=== PATIENT | male | born 1985 | race Caucasian/White ===

== ENCOUNTER 2017-04-18 23:32 | Inpatient (IN) | payer OTHER ==
--- NOTE | ~2017-04-18 | CR58 ---
[facility] A Service of [facility] & [facility] RADIOLOGY TEXT RESULTS PATIENT: HERNAN HESTER LOCATION: [place] [address] : [birth year] UNIT #: [id number] AGE: [address]: Janell Mcfarlane MD SEX: M ORDER DR: [id number] [facility] [address] [place], [place] [address] [id number] I MR#: [id number] #: [id number] NAME: HERNAN HESTER : 1985 SEX: M STUDY DATE/TIME: 04/19/2017 01:29 UNIT: [facility] ROOM: [facility] STUDY DESCRIPTION: CR Cervical Spine 2 or 3 Views Attending Physician: Janell Mcfarlane M.D. Ordering Physician: Perlita White M.D. Primary Care Physician: Primary Care Physician No MEDICAL IMAGING REPORT This report is preliminary unless electronic signature is present EXAM Cervical spine, 04/19 at 01:29 HISTORY Patient found down after overdose. Neck pain. The patient found down today. FINDINGS Five views of the cervical spine were obtained. Some of the views are limited as the patient would not cooperate with the exam. No fracture or malalignment is seen. Vertebral body heights and disc spaces are normal. Prevertebral soft tissues are normal. IMPRESSION Negative cervical spine. Dictated by... Beau Guzman Jr., M.D. THIS IS AN ELECTRONICALLY VERIFIED REPORT Beau Guzman Jr., M.D. at 04/19/2017 9:53 PM ULICES/kevin TD: 04/19/2017 08:24 JOB #: [id number] MEDICAL IMAGING REPORT Page 1 of 1 COPY
--- NOTE | ~2017-04-18 | CO ---
Unit #: [id number] #: [id number] Patient: CASSIE CAMERON [id number] [facility] [address] [place], [place] [address] [id number] I MR#: [id number] NAME: CASSIE CAMERON ROOM: 569 Age: 31 Sex: M Admission Date: 04/19/2017 : 1985 Attending Physician: Michelle Andre M.D. Consultation Date: 04/25/2017 CONSULTATION REPORT REASON FOR CONSULTATION Substance abuse, delirium, confusion, encephalopathy. HISTORY OF PRESENT ILLNESS Mr. Cassie Cameron/Carlos Shipman is a 31-year-old white male, seen in room seen 569 bed 1 at [facility] on 04/25/2017. The patient dressed in hospital attire, lying comfortably in bed, very difficult to arouse, very sleepy, and drowsy. The patient was unable to give any reliable information, confused. The patient's vital signs; temperature 98.2, pulse 86, respirations 20, blood pressure 194/98, oxygen saturations 94%. The patient unable to give any reliable information. The patient's mother was in the same room, who reported that the patient was found face down. The patient has a history of substance abuse, apparently used opiates and methamphetamine. The patient's urine drug screen report was not available. The patient was admitted on 04/19/2017. The patient diagnosed with delirium, rhabdomyolysis, acute kidney injury, pneumonia, polysubstance abuse. The patient also has a history of hepatitis C. The patient needed IM medication to control agitation, but currently doing better, did not require any seclusion or restraint. No sitter required. Easily redirectable. PAST PSYCHIATRIC HISTORY Remarkable for history of polysubstance abuse. No known history of any depression, anxiety, or any history of any inpatient psychiatric treatment. MEDICAL HISTORY AND MEDICATIONS HISTORY No known history of any chronic medical condition except for hepatitis C and history of polysubstance abuse. The patient was abusing amphetamine, Xanax, opiates. Medication history, the patient is on vancomycin and IV fluids. FAMILY HISTORY AND SOCIAL HISTORY The patient has a good support system from family. The patient never , but has 7 children. 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 No known history of any abuse. REVIEW OF SYSTEMS Complete review of systems is unremarkable except as mentioned above. MENTAL STATUS EXAMINATION The patient's vital signs; temperature 98.2, pulse 86, respirations 20, blood pressure 194/98, oxygen saturation 94%. General appearance, the patient dressed in hospital attire, lying comfortably in bed. [facility] Unit #: [id number] #: [id number] Patient: CASSIE CAMERON difficult to arouse, very drowsy, sleepy. Attention span and concentration, poor. Speech, minimal. Orientation, unable to assess. Mood and affect, flat. Thought process, unable to assess. Thought content, unable to assess. Guarded paranoid, confused. Unable to provide reliable information. Recent and remote memory, poor. Language, unable to assess. Fund of knowledge, poor. Insight and judgment, impaired. DIAGNOSES Psychiatric: Delirium, F05; possible encephalopathy secondary to substance abuse/oxygen deprivation to brain possibly; history of opioid abuse, severe F11.20; history of amphetamine abuse, moderate, F15.20; history of sedative hypnotic use disorder, F13.20. Secondary diagnosis: Deferred. Medical diagnosis: Please refer to H and P. Stressors: Psychosocial stressors. ASSESSMENT AND PLAN 1. Supportive psychotherapy and psychoeducation provided to the patient and family, and educated about benefits and side effects of medication and course and prognosis of illness. At this time, the patient unable to comprehend much. 2. Advised to continue with the treatment as advised. We will continue to monitor. If needed, consider medication to treat the delirium. The patient is prescribed haloperidol 2 mg q.8 hours p.r.n., agree at this time with that. If needed, consider on regular basis. If needed, please feel free to call if any questions, telephone #[phone]. Dictated by... Molly Sena/tirso TD: 04/26/2017 14:31 JOB #: [id number] CONSULTATION REPORT Page 1 of 1 X Miguel Angel Worthington MD X CONSULTATION REPORT
--- NOTE | ~2017-04-18 | FU ---
[facility] Nutrition Therapy DATE: 04/25/17 Patient: CASSIE CAMERON Physician: WASHINGTON Address: [address] Room/Bed: [address] [place] [address], Zip: [place] [address] Admit Date: 04/19/17 Date of : [birth year] Height: 5 3 Weight: 137 62.5 NUTRITION MONITORING/FOLLOW-UP: Reason: PT SEEN FOR FOLLOW-UP DX: ASHIA, RHABDO, PNA, DELIRIUM Anthropometrics: 5'5", WT: 137# (62 KG), BMI: 22.8 -ADMIT WEIGHT: 121# Labs: BUN: 45, CREAT: 2.3, CA+:7.7, ALB: 2.1 (04/22/17), AST: 108, ALT:113, GFR: 37.0 Meds: NACL, ZOFRAN I&O's: 230/1375 Skin: NO KNOWN SKIN ISSUES EDEMA: RUE 2+ EDEMA; BLE 1+ EDEMA; LUE 1+ EDEMA Assessment: CHART REVIEWED AND EVENTS NOTED. PT SEEN FOR FOLLOW-UP. PT WITHDRAWN, DROWSY AND LETHARGIC AT THIS TIME. PT DID NOT WAKE TO VERBAL CUES. FAMILY AT BEDSIDE ALSO SLEEPY/LETHARGIC AT TIME OF VISIT. FAMILY REPORTS PT DID NOT CONSUME BREAKFAST AND LUNCH TODAY BECAUSE PT WAS TOO SLEEPY. FAMILY REPORTED NO DIET QUESTIONS. PT NOT APPROPRIATE FOR DIET EDUCATION AT THIS TIME. RD TO FOLLOW. Dx: INADEQUATE PROTEIN-ENERGY INTAKE R/T CURRENT DIAGNOSIS & CONDITION AEB NPO STATUS. -ACTIVE/RESOLVED. NEW DX: INADEQUATE PROTEIN-ENERGY INTAKE R/T CURRENT CONDITION AEB PT SLEEPY/LETHARGIC. Intervention: 1. REGULAR DIET + THINS Monitoring, Evaluation and Goals: 1. PO INTAKE; CONSUME/TOLERATE >50% OF MEALS W/NO C/O N/V/D-NOT MET/IN PROGRESS 2. LABS; WNL-IN PROGRESS 3. GI; PROMOTE REGULAR GI FUNCTION-IN PROGRESS 5. ENTERAL NUTRITION; PROVIDE >80% ESTIMATED NUTRIENT NEEDS-UNMEASURED NEW GOALS: 1. WEIGHTS; PROMOTE WEIGHT MAINTENANCE MONITOR: -PO INTAKE/APPETITE -WEIGHTS [facility] Nutrition Therapy DATE: 04/25/17 Patient: CASSIE CAMERON Physician: WASHINGTON Address: [address] Room/Bed: [facility] [facility], Zip: [place] [address] Admit Date: 04/19/17 Date of : [birth year] Height: 5 3 Weight: 137 62.5 Recommendations: 1. PLEASE OBTAIN PHOS LEVEL 2. CONTINUE CURRENT DIET ORDER ABOVE 3. CONSIDER ADDING SUPPLEMENTS, SUCH ENSURE ENLIVE, PUDDING, MAGIC CUP OR ENSURE CLEAR BID, FOR ADDITIONAL PROTEIN AND KCAL 4. APPRECIATE FAMILY AND STAFF TO ENCOURAGE PO INTAKE, ASSIST W/ORDERING MEALS NEEDED RD WILL F/U PER PROTOCOL PT IS MILDLY COMPROMISED Respectfully, FELY SYED MS, RD, LD [employer] [facility] [employer] cc: client file
--- NOTE | ~2017-04-18 | MR18 ---
[facility] A Service of [facility] & [facility] RADIOLOGY TEXT RESULTS PATIENT: CASSIE CAMERON LOCATION: [facility] 569-01 : [birth year] UNIT #: [id number] AGE: [address]: Michelle Andre MD SEX: M ORDER DR: [id number] [facility] [address] [place], [place] [address] [id number] I MR#: [id number] Acc #: [id number] NAME: CASSIE CAMERON : 1985 SEX: M STUDY DATE/TIME: 04/26/2017 21:53 UNIT: [facility] ROOM: [facility] STUDY DESCRIPTION: MR Brain Wo Contrast Attending Physician: Michelle Andre M.D. Ordering Physician: Sandra Cantu M.D. Primary Care Physician: Primary Care Physician No MRI CENTER REPORT This report is preliminary unless electronic signature is present. EXAM MRI of the brain without contrast, 04/26/2017 COMPARISON None. HISTORY Drug overdose. Patient unable to talk since April 16 or . FINDINGS Multisequence, multiplanar imaging of the brain was obtained without contrast. There are hyperintense T2 signal lesions noted in the bilateral lentiform nuclei, particularly on the right, right occipital cortex and underlying subcortical white matter, periventricular white matter. These have increased DWI signal also. Increased DWI signal is also noted in the splenium of the corpus callosum. Minimal associated and decreased ADC signal is associated with some of these lesions. No hydrocephalus. There is slightly smaller size of the right lateral ventricle when compared to the left. S-shaped nasal septal deviation is noted. Images orbits with the ocular structures are unremarkable. Paranasal sinus mucosal thickening is noted, severe in the right maxillary antrum. Motion artifact limits evaluation. IMPRESSION 1. Scattered increased T2 signal with some increased DWI signal and suspicious mild decreased ADC signal are noted in the brain. The are in bilateral lentiform nuclei particularly involving the globus pallidi, right occipital lobe in the region of the cortex and subcortical white matter of the occipital pole, splenule of the corpus callosum, periventricular white matter. The patient has a history of IV drug abuse. Differential consideration include toxic and metabolic encephalopathy including carbon monoxide poisoning. Post contrast imaging would be helpful. Scattered thromboembolic STS. [facility] A Service of [facility] & [facility] RADIOLOGY TEXT RESULTS PATIENT: CASSIE CAMERON LOCATION: [facility] 569-01 : [birth year] UNIT #: [id number] AGE: [address]: Michelle Andre MD SEX: M ORDER DR: phenomenon, sporadic Creutz feldt Jayden disease and Infectious process like encephalitis are next in the differential consideration. there is no evidence of well defined drainable abscess. 2. Paranasal sinus mucosal thickening, particularly in the right maxillary antrum. STAT * RESULT Dictated by... Crystal Trivedi M.D. THIS IS AN ELECTRONICALLY VERIFIED REPORT Crystal Trivedi M.D. at 04/28/2017 11:59 AM CPR/cody TD: 04/26/2017 22:48 JOB #: [id number] MRI CENTER REPORT Page 1 of 1 COPY
--- NOTE | ~2017-04-18 | OR ---
Unit #: [id number] #: [id number] Patient: HERNAN HESTER [id number] [address] [address] [id number] I MR#: [id number] NAME: HERNAN HESTER ROOM: [facility] Date of Procedure: 04/19/2017 Admission Date: 04/19/2017 Surgeon: Adam Urbina M.D. : 1985 Attending Physician: Janell Mcfarlane M.D. Primary Care Physician: Kayleen Primary Care Physician PROCEDURE OPERATIVE NOTE INDICATION FOR PROCEDURE Altered mental status. PROCEDURE PERFORMED Diagnostic lumbar puncture. ANESTHESIA Versed 6 mg IV. COMPLICATIONS None. PROCEDURE An informed consent was obtained from the family after explaining the risks and benefits of this procedure. The patient was prepped and positioned appropriately. Then he was cleansed with chlorhexidine. Then a needle was inserted in the vertebral space between the L4 and L5 vertebra until clear fluid was obtained, about 10 cc was put in sterile tubes, which will be sent for testing. Then the needle was removed and a dressing was applied to the procedure site. The patient will be flat for the next four hours post procedure. The patient tolerated the procedure well, with no immediate complications. Dictated by... Adam Urbina M.D. EA/marco TD: 04/20/2017 07:09 JOB #: [id number] PROCEDURE OPERATIVE NOTE Page 1 of 1 X ADAM ROSA MD X PROCEDURE OPERATIVE NOTE
--- NOTE | ~2017-04-18 | XA198 ---
[facility] A Service of [facility] & [facility] RADIOLOGY TEXT RESULTS PATIENT: CASSIE CAMERON LOCATION: [facility] 569-01 : [birth year] UNIT #: [id number] AGE: [address]: Michelle Andre MD SEX: M ORDER DR: [id number] [place] [address] [facility] [place], [place] [address] [id number] I MR#: [id number] Acc #: [id number] NAME: CASSIE CAMERON : 1985 SEX: M STUDY DATE/TIME: 04/21/2017 14:15 UNIT: [facility] ROOM: [facility] STUDY DESCRIPTION: XA Spinal Puncture Attending Physician: Michelle Andre M.D. Ordering Physician: Pedro Mckeon M.D. Primary Care Physician: Primary Care Physician No MEDICAL IMAGING REPORT This report is preliminary unless electronic signature is present EXAM Fluoroscopically guided lumbar puncture INDICATION Unresponsiveness since April 18, 2017. Patient does have a history of hepatitis C. PROCEDURE The risks, benefits, and alternatives to the procedure were explained to the patient's power of admitted attorneys, and signed, informed consent was obtained. He was placed prone on the angiographic table and was prepped and draped in the usual sterile fashion. Skin and subcutaneous tissues were anesthetized with buffered lidocaine and a 20-gauge spinal needle was advanced into the spinal canal under fluoroscopic guidance. Inner stylet was removed and this yielded slow but spontaneous drainage of mildly cloudy CSF. I attached tubing to the needle which had only very slow drainage through the tubing. Ultimately, I attached a syringe to the needle and removed a total of about 6 mL of again somewhat cloudy CSF and divided it up amongst the 4 tubes. Needle was then removed and manual pressure was applied until hemostasis was obtained. Patient tolerated the procedure well and there were no immediate complications. Total fluoroscopy time was 0.7 minutes. AK was 16 mGy. IMPRESSION Technically successful fluoroscopically guided lumbar puncture as noted above. Fluoroscopy was used during the procedure and permanent images were saved. Please note CSF did appear slightly cloudy and was sent to the lab as requested by the primary team. Dictated by... Dee Blake M.D. [facility] A Service of [facility] & [facility] RADIOLOGY TEXT RESULTS PATIENT: CASSIE CAMERON LOCATION: [facility] 569-01 : [birth year] UNIT #: [id number] AGE: [address]: Michelle Andre MD SEX: M ORDER DR: THIS IS AN ELECTRONICALLY VERIFIED REPORT Dee Blake M.D. at 04/24/2017 3:53 PM AFF/carlos TD: 04/24/2017 09:48 JOB #: [id number] MEDICAL IMAGING REPORT Page 1 of 1 COPY
--- NOTE | ~2017-04-18 | XA166 ---
[facility] A Service of [facility] & [facility] RADIOLOGY TEXT RESULTS PATIENT: CASSIE CAMERON LOCATION: [facility] 569-01 : [birth year] UNIT #: [id number] AGE: [address]: Michelle Andre MD SEX: M ORDER DR: [id number] [facility] [address] [place], [place] [address] [id number] I MR#: [id number] Acc #: [id number] NAME: CASSIE CAMERON : 1985 SEX: M STUDY DATE/TIME: 04/25/2017 15:01 UNIT: [facility] ROOM: [facility] STUDY DESCRIPTION: XA PICC Line Placement WO Port Attending Physician: Michelle Andre M.D. Ordering Physician: Michelle Andre M.D. Primary Care Physician: Primary Care Physician No MEDICAL IMAGING REPORT This report is preliminary unless electronic signature is present EXAM Right-sided PICC line placement HISTORY No IV access. Drug addition. PRE-PROCEDURE The procedure was explained to the patient and/or patient sales representative canvas products including risks, benefits, potential complications and potential for alternative forms of treatment. Informed consent was obtained, and prior to initiating the procedure a formal timeout procedure was performed. PROCEDURE Using full standard sterile barrier technique, including caps, gowns, gloves, masks, as well as sterile skin preparation and standard sterile draping, the right arm was prepped and draped in the usual fashion, and real-time sterile ultrasound guidance was used to localize an arm vein and to confirm vessel patency. A hard copy ultrasound image was recorded. After local anesthesia with 1% Xylocaine, the basilic vein was punctured using real-time sterile ultrasound guidance, and an 0.018 guidewire was advanced into the superior vena cava, using fluoroscopic guidance. A 5-Sinhala dual-lumen PICC was then measured to 38 cm and deployed with the tip positioned in the superior vena cava. The position of the line was documented with a single spot radiographic image. The line was secured in place with an adhesive dressing and an antibiotic patch was applied. Total fluoro time was 0.8 minutes. Exposure 6 mGy air kerma standard. IMPRESSION Successful placement of a 5-Sinhala dual-lumen PowerPICC via the arm under ultrasound and fluoroscopic guidance. The tip of the PICC is in good position in the superior vena cava. [facility] A Service of [facility] RADIOLOGY TEXT RESULTS PATIENT: CASSIE CAMERON LOCATION: [facility] 569-01 : [birth year] UNIT #: [id number] AGE: [address]: Michelle Andre MD SEX: M ORDER DR: Dictated by... Cassie Garcia M.D. THIS IS AN ELECTRONICALLY VERIFIED REPORT Cassie Garcia M.D. at 04/27/2017 7:24 AM ANAY/cody TD: 04/25/2017 23:14 JOB #: [id number] MEDICAL IMAGING REPORT Page 1 of 1 COPY
--- NOTE | ~2017-04-18 | CO ---
Unit #: [id number] #: [id number] Patient: HERNAN HESTER [id number] [address] [place], [place] [address] [id number] I MR#: [id number] NAME: HERNAN HESTER ROOM: [facility] Age: 31 Sex: M Admission Date: 04/19/2017 : 1985 Attending Physician: Trina Christie M.D. Primary Care Physician: No Primary Care Physician Consultation Date: 04/19/2017 CONSULTATION REPORT REASON FOR CONSULT ICU management. HISTORY OF PRESENT ILLNESS This is a 31-year-old male with past medical history significant for IV drug abuse who presented to the emergency room with altered mental status and drug overdose. The family is not at bedside at this point and reachable by phone, but per the nursing report, his girlfriend stated that he has been doing hard drugs for the last 2 years, and for the last 4 or 5 days he was wide awake with no sleep. Finally, after doing a lot of methamphetamine, he became more lethargic and less responsive. The patient's girlfriend finally decided to bring him to the emergency room. She also noted that he was coughing and probably had fever, but she did not check it. There was no reported nausea, vomiting or diarrhea. PAST MEDICAL HISTORY IV drug abuse. PAST SURGICAL HISTORY None. SOCIAL HISTORY The patient is well known by his family to do IV drugs; unsure about drinking or smoking. ALLERGIES No known drug allergies. FAMILY HISTORY Noncontributory. REVIEW OF SYSTEMS Unable to obtain due to the patient's condition. PHYSICAL EXAMINATION GENERAL: The patient is lethargic but very restless. VITAL SIGNS: Blood pressure 110/62, respiratory rate 24, heart rate between 105 and 124, O2 saturation 98% on room air. HEENT: Atraumatic, normocephalic. PERRLA, EOMI. NECK: Supple. No JVD. No lymphadenopathy. CHEST: Bilateral fine rhonchi. HEART: S1, S2. Positive systolic murmur. Unit #: [id number] #: [id number] Patient: HERNAN HESTER ABDOMEN: Soft, nontender. Bowel sounds positive. No hepatosplenomegaly. EXTREMITIES: No edema or cyanosis. SKIN: No rashes. 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 He is not answering questions except for saying, "Yes" and "What?" He is moving all extremities. LABS AND OTHER TESTS LABS: Creatinine of 4.5, sodium 126, chloride 93, AST 10,040. CK 50,000. IMAGING TESTS: Chest x-ray is concerning for septic emboli. ASSESSMENT 1. Severe sepsis. 2. Likely endocarditis. 3. Severe rhabdomyolysis. 4. Acute kidney injury. 5. Transaminitis, likely representing hepatitis. 6. Hyponatremia. 7. IV drug abuse. 8. Hyperkalemia. PLAN 1. The patient is critical and expected to deteriorate over the next 1-2 days, so we will continue to watch in the ICU very closely. 2. Generous IV hydration, including bicarb. 3. The patient may likely need hemodialysis at some point. We will defer to renal to assess. 4. Broad-spectrum antibiotics pending culture. 5. The patient will need echo and LEO at some point. 6. He will also need MRI of his head when he is more cooperative. 7. Hepatitis and HIV panels. 8. Will hold on DVT prophylaxis until more definitive imaging of his head is available. NOTE: Critical care time spent on this patient was 32 minutes. Dictated by... Molly Marina TD: 04/19/2017 07:59 JOB #: [id number] CONSULTATION REPORT Page 1 of 1 X ADAM ROSA MD X CONSULTATION REPORT
--- NOTE | ~2017-04-18 | CO ---
Unit #: [id number] #: [id number] Patient: HERNAN HESTER [id number] [address] [place], [place] [address] [id number] I MR#: [id number] NAME: HERNAN HESTER ROOM: CIC2 Age: 31 Sex: M Admission Date: 04/19/2017 : 1985 Attending Physician: Janell Mcfarlane M.D. Primary Care Physician: No Primary Care Physician Consultation Date: 04/19/2017 CONSULTATION REPORT REASON FOR CONSULTATION Antibiotic management and suspected possible endocarditis/sepsis. HISTORY OF PRESENT ILLNESS This is a 31-year-old male who is agitated and has altered mental status and unable to provide any history. There is no history and physical at this time uploaded in the computer system and chart has been reviewed. The patient appears to have been brought to the emergency room by his family as he was unable to, per the ER records, "sleep it off" which is what he normally does after he does drugs. The patient has a history of methamphetamine and heroin abuse. The patient was admitted to the hospital after he was found to have some acute kidney injury, rhabdomyolysis and altered mental status. The patient is currently in the ICU. He is not on any pressors but he remains agitated and restless. He is difficult to get any information from. The patient was started on antibiotic therapy and ID was asked to evaluate for further management. PAST MEDICAL HISTORY Unknown except for hepatitis C in the ER records with IV drug abuse. PAST SURGICAL HISTORY Unknown. ALLERGIES No known allergies. MEDICATIONS Vancomycin and Zosyn. He also got tobramycin x1 in the ER. For other medications, please refer to patient's MAR. SOCIAL HISTORY Known polysubstance abuse with methamphetamines and heroin as well as Xanax per the ER records. REVIEW OF SYSTEMS Unable to obtain secondary to patient's mental status. PHYSICAL EXAMINATION VITAL SIGNS: Temperature is 98.9 with a T-max of 101.8. Pulse is 121, blood pressure is 133/78, respiratory rate is 32. GENERAL: This is a no apparent distress male who is restless, had altered mental status. HEENT/NECK: Pupils are difficult to examine as patient will not stay still. Neck appears supple but difficult to examine secondary to Unit #: [id number] #: [id number] Patient: HERNAN HESTER patient's restlessness. CARDIOVASCULAR: S1, S2 with tachycardia. Unable to appreciate any murmur as patient is too restless. PULMONARY: Diminished in the bases, otherwise clear. ABDOMEN: Soft, flat, nontender. Positive bowel sounds. EXTREMITIES: No obvious abscesses noted. DIAGNOSTIC STUDIES LABORATORY: BUN 82, creatinine 4.5, sodium 126, potassium 5.5, chloride 93, CO2 19, bilirubin 1.0, AST 1040, ALT 345, CK 51,900. Troponin 0.64, ammonia 9. Lactic acid 2.9, alcohol less than 5. White blood cell count 10 which is improved from 14, hemoglobin 14, hematocrit 42, platelets 191. HIV is nonreactive. Tox screen is positive for amphetamines and benzos but negative for opiates. Urinalysis shows WBCs 2-5 with negative nitrites. Microbiology - blood cultures are currently pending. IMAGING: CT scan of the head is pending full report and unable to get into the DR system. Chest x-ray - coarse bilateral infiltrates. Cannot exclude septic emboli. CT of the chest has not been done yet at this time. IMPRESSION This is a 31-year-old male with polysubstance abuse who came into the hospital by his family secondary to altered mental status. The patient continues to have altered mental status and was found to have rhabdomyolysis and acute kidney injury. The patient also is noted to have pneumonia as well with probable septic emboli. Due to patient's recreational activities, high suspicion for bacteremia/sepsis with associated endocarditis. Will ask for echocardiogram if not yet ordered. Due to patient's current mental status, will also recommend a lumbar puncture and this has been discussed with Dr. Urbina and will send for routine cultures as well as cell count with diff, glucose, protein and HSV PCR. Will give patient vancomycin, ceftriaxone, high dose acyclovir per pharmacy dosing secondary to patient's renal status and check lab work in the morning. Nephrology is also to evaluate this patient. Will follow up on the CT scan of the chest when able to be done and patient is stable. I do suspect patient has likely septic emboli. Will have the nursing staff call with any positive blood cultures. Thank you for allowing us to participate in the care of this patient. Further recommendations to follow pending patient's clinical course. Dictated by... Krystina Stacey Singleton M.D. Unit #: [id number] #: [id number] Patient: HESTERHERNAN/nava TD: 04/19/2017 08:53 JOB #: [id number] CONSULTATION REPORT Page 1 of 1 X X CONSULTATION REPORT
--- NOTE | ~2017-04-18 | A ---
[facility] Nutrition Therapy DATE: 04/20/17 Patient: HERNAN HESTER Physician: W[place] Address: [address] [facility] Room/Bed: [address], Zip: [place] [address] Admit Date: 04/19/17 Date of : [birth year] Height: 5 3 Weight: 138 63 NUTRITIONAL ASSESSMENT: REASON: NO DIET ORDER IN ICU ASSESSMENT PT IS 31 Y.O. MALE ADMITTED FOR ASHIA, RHABDO, PNA, DELIRIUM PMH: HEP C, IV DRUG USE, POLYSUBSTANCE ABUSE Anthropometrics: 5'5" (PER FAMILY), WT: 120# (PER FAMILY) (55 KG), BMI: 20.0, 88%IBW Labs: BUN: 81, CREAT: 4.7, CA+:8.0, ALB: 2.4, AST: 461, ALT: 220, GFR: 15.6 Meds: NACL, ZOFRAN I/O & Bowel function: 6211/1225 Skin Integrity: RASH LOCATED BUTTOCKS Estimated Nutrition Needs: 7767-2710 KCAL (28-32 KCAL/KG BW) 66-82 G PRO (1.2-1.5 G PRO/KG BW) FLUIDS CONSISTENT W/KCAL NEEDS OR MANAGE PER MD Assessment: CHART REVIEWED AND EVENTS NOTED. PT SEEN FOR NO DIET ORDER IN ICU ASSESSMENT. PT FOUND DOWN AT HOME, NOTED TO BE AGITATED, RESTLESS AND DELIRIOUS SINCE ADMIT. PT CURRENTLY NPO 2' PT LETHARGIC, NOT APPROPRIATE FOR DIET ADVANCEMENT AT THIS TIME, ?ENDOCARDITIS. FAMILY AT BEDSIDE REPORT PT HAS LOST ~25-40# PAST YEAR "FROM DOING DRUGS"/ SEVERE WEIGHT LOSS NOTED (UBW NOTED 150-160#). FAMILY ADDS PT'S APPETITE "GOES UP AND DOWN" DEPENDING ON DRUG USAGE. FAMILY REPORTED NO DIET QUESTIONS AT THIS TIME. RD TO CONTINUE TO FOLLOW. SEE RECOMMENDATIONS BELOW. Dx: INADEQUATE PROTEIN-ENERGY INTAKE R/T CURRENT CONDITION, CURRENT DIAGNOSIS AEB NPO STATUS. Intervention: 1. NPO Monitoring, Evaluation and Goals: 1. ORAL INTAKE; ADVANCE DIET AND CONSUME >50% OF MEALS W/NO C/O N/V/D 2. ENTERAL NUTRITION?; PROVIDE >80% ESTIMATED NUTRIENT NEEDS AT GOAL 3. LABS; WNL 4. GI; PROMOTE REGULAR GI FUNCTION MONITOR: [facility] Nutrition Therapy DATE: 04/20/17 Patient: HERNAN HESTER Physician: WASHINGTON Address: [facility] Room/Bed: [address], Zip: [place] [address] Admit Date: 04/19/17 Date of : [birth year] Height: 5 3 Weight: 138 63 -WEIGHTS -PLANS FOR SUPPORT -INTUBATION? -LABS Recommendations: 1. ONCE MEDICALLY FEASIBLE, ADVANCE DIET PER SECURITY PROGRAM MANAGER + REGULAR DIET 2. ORDER APPROPRIATE SUPPLEMENTS BID ONCE DIET ADVANCES (ENSURE CLEAR, ENSURE ENLIVE, PUDDING, MAGIC CUP) FOR ADDITIONAL PROTEIN AND KCAL 3. IF PT REMAINS NPO >3 DAYS AND/OR IS INTUBATED, RECOMMEND TO PLACE DHT AND BEGIN ALTERNATIVE NUTRITION SUPPORT OF JEVITY 1.5 @ 20 ML/HR, ADVANCE 10 ML q 4 HOURS TO GOAL RATE OF 45 ML/HR -PROVIDES 1620 KCAL, 69 G PRO, 821 ML FREE H20 ADD FREE H20 FLUSHES PER RD WILL F/U PER PROTOCOL PT IS MODERATELY COMPROMISED Respectfully, FELY SYED MS, RD, LD [facility] Psychiatric cc: client file
--- NOTE | ~2017-04-18 | CR181 ---
[facility] A Service of [facility] & [facility] RADIOLOGY TEXT RESULTS PATIENT: HERNAN HESTER LOCATION: [address] : [birth year] UNIT #: [id number] AGE: [address]: Janell Mcfarlane MD SEX: M ORDER DR: [id number] [facility] [address] [place], [place] [address] [id number] I MR#: [id number] Acc #: [id number] NAME: HERNAN HESTER : 1985 SEX: M STUDY DATE/TIME: 04/19/2017 01:38 UNIT: [facility] ROOM: [facility] STUDY DESCRIPTION: CR Lumbar Spine 2 or 3 Views Attending Physician: Janell Mcfarlane M.D. Ordering Physician: Perlita White M.D. Primary Care Physician: No Primary Care Physician MEDICAL IMAGING REPORT This report is preliminary unless electronic signature is present EXAM Lumbar spine 04/19 at 01:38. INDICATIONS Patient found down after overdose today. Back pain. FINDINGS AP and lateral projections of the lumbar segment show good mineralization of both anterior and posterior elements. They are all anatomically normal without indication of fracture, dislocation, or malignant change of a sclerotic or lytic type. There is no congenital defect noted. The sacroiliac joints are normal. IMPRESSION Normal lumbar spine. Dictated by... Beau Guzman Jr., M.D. THIS IS AN ELECTRONICALLY VERIFIED REPORT Beau Guzman Jr., M.D. at 04/19/2017 9:53 PM ULICES/philip TD: 04/19/2017 08:30 JOB #: [id number] MEDICAL IMAGING REPORT Page 1 of 1 COPY
--- NOTE | ~2017-04-18 | CO ---
Unit #: [id number] #: [id number] Patient: CASSIE CAMERON [id number] [facility] [address] [place], [place] [address] [id number] Susan MR#: [id number] NAME: CASSIE CAMERON ROOM: 569 Age: 31 Sex: M Admission Date: 04/19/2017 : 1985 Attending Physician: Michelle Andre M.D. Primary Care Physician: Primary Care Physician No Requesting Physician: Michelle Andre M.D. Consultation Date: 04/26/2017 CONSULTATION REPORT REASON FOR CONSULTATION Mental status changes. PATIENT IDENTIFICATION This is a 31-year-old right-handed, white male who is evaluated in room 569 at [facility]. SOURCE OF INFORMATION The medical records. PROBLEM LIST 1. He was admitted on April 19 with delirium, rhabdomyolysis, acute kidney injury, pneumonia and possible polysubstance abuse. 2. History of hepatitic C. 3. He was in the ICU with severe sepsis. 4. Likely endocarditis. 5. Transaminitis. 6. Hyponatremia. 7. History of IV drug abuse and hyperkalemia. 8. He had febrile illness. 9. He has acute kidney injury, likely ATN and he had respiratory distress and was intubated. HISTORY OF PRESENT ILLNESS This is a 31-year-old gentleman who was actually admitted more than a week ago for multiple issues, including polysubstance abuse, renal failure, respiratory failure and others. He has been aggressively treated and he has improved, but he was not really communicating. I talked to the patient and I have talked to the nurse. He has not really talked to them for 3 days. He was screaming last night, possibly a delirium-like situation. I saw him around 6 p.m. and he started talking to me. He is very slow in responses, but oriented x2. His exam is very limited, but I am not seeing anything focal. I looked at his labs and his LP was abnormal, but he was aggressively treated with antibiotics. There is no neck stiffness, there is no seizure. A head CT was okay, but he has not had an MRI, and again, nothing focal was really reported. No history of seizures. Again, likely multifactorial toxic metabolic encephalopathy and he is improving significantly. PAST MEDICAL HISTORY As discussed above. Unit #: [id number] #: [id number] Patient: ACSSIE CAMERON PAST SURGICAL HISTORY Nothing major. ALLERGIES None. HOME MEDICATIONS None. MEDICATIONS HERE Please refer to the MAR. FAMILY HISTORY Details are not known to me, but, apparently, there is no problem with neurologic issues. SOCIAL HISTORY He is single but does have a girlfriend. He does have history of polysubstance abuse and possible alcohol use, and he smokes about a half a pack per day, as per the records. Unfortunately, no family member is available to corroborate any history. REVIEW OF SYSTEMS Could not be obtained because of his non-cooperativeness, but when asked specifically, the only thing I got was that he is hurting all over. HEENT: There is no headache. CARDIOVASCULAR: There is no chest pain. RESPIRATORY: There is no shortness of air. GASTROINTESTINAL: There is no nausea, vomiting, diarrhea or constipation. EXTREMITIES: No other extremity problems. No real back problem. PSYCHIATRIC: Delirium. NEUROLOGIC: Mental status changes. He has sepsis and possible history of endocarditis, but no other hematologic, dermatologic or endocrinologic issues known to me, but, again, review of systems is very limited. PHYSICAL EXAMINATION VITAL SIGNS: Temperature 98.5, T-max 98.5, pulse 105, respirations 16, blood pressure 128/83, O2 sats 95% to 97%, weight 137 pounds. NEUROLOGIC EXAMINATION MENTAL STATUS: The patient is very slow to respond. He does not want to talk. He is dysphonic, but he told me his name, he told me he was in the hospital though he did not know where. He does not know the date or day. He can name. He can follow commands. He gave me thumbs up. He was able to identify two things. CRANIAL NERVE EXAMINATION: He does respond to threats in the primary field, full simmons are questionable. Eye movements seem to be conjugate. I did not see any ptosis. I did not see any nystagmus. Extraocular movements seemed to be intact. Funduscopic examination was not successful. Sensation of the face and scalp was normal. I did not see facial asymmetry. Hearing seemed to be intact. Tongue was midline. I could not visualize his oropharynx or uvula. Head turning was spontaneous. No neck stiffness was seen. MOTOR EXAMINATION: Demonstrated normal bulk, tone. Strength was 5-/5 all over. Unit #: [id number] #: [id number] Patient: CASSIE CAMERON SENSORY EXAMINATION: Intact for soft touch and pain sensation. Extinction was questionable. Romberg was not evaluated. GAIT EXAMINATION: Not evaluated. REFLEXES: Were 1/4 in the upper extremities. I could not get any in the lower extremities. Toes were mute. COORDINATION: Coordination is questionable in this situation. DIAGNOSTIC STUDIES LABORATORY: BUN 47, creatinine 2.5, calcium 8.0, phosphorus 5.0, albumin 2.1. CK was 17,841 on April 20; it was 51,900 on April 18. His troponin was 0.64. His LP showed protein 49, 8 WBC, predominantly neutrophils. White count is 18.7 now in the blood, but he was aggressively treated with antibiotics anyway. IMPRESSION Likely multifactorial toxic metabolic encephalopathy. Abnormal LP but given antibiotics. He is turning around and I think it is more delirious than anything else. I do want to check his labs and his MRI and go from there. I am not seeing anything active right now, so further treatment will be based on any findings and I will keep you informed. Call me with any other questions, issues or concerns and I will follow him while he is here and further treatment will be based on how he does. MRI may show a structural problem and we will see. Was he hypoxic? Was he anoxic? Did the rhabdo cause the problem? So all these issues have to be addressed. I will call him as multifactorial toxic metabolic encephalopathy right now and I will follow. Dictated by... Sandra Cantu M.D. ABDIEL/lio TD: 04/27/2017 03:30 JOB #: [id number] CONSULTATION REPORT Page 1 of 1 X Sandra Cantu MD CONSULTATION REPORT
--- NOTE | ~2017-04-18 | CR72 ---
[facility] A Service of [facility] & [facility] RADIOLOGY TEXT RESULTS PATIENT: HERNAN HESTER LOCATION: [address] : [birth year] UNIT #: [id number] AGE: [address]: Janell Mcfarlane MD SEX: M ORDER DR: [id number] [facility] [address] [place], [place] [address] [id number] I MR#: [id number] Acc #: [id number] NAME: HERNAN HESTER : 1985 SEX: M STUDY DATE/TIME: 04/19/2017 00:06 UNIT: [facility] ROOM: [facility] STUDY DESCRIPTION: CR Chest Single View Portable Attending Physician: Trina Christie M.D. Ordering Physician: Perlita White M.D. Primary Care Physician: Primary Care Physician No MEDICAL IMAGING REPORT This report is preliminary unless electronic signature is present EXAM Portable chest, 04/19 at 00:06 hours INDICATION Patient found down from overdose. Shortness of air. FINDINGS AP portable chest was obtained. There are no comparisons. The heart size is normal. There is no pneumothorax. Coarse bilateral infiltrates are present. These are most pronounced in the medial right base. Given the appearance, I cannot exclude septic emboli on this exam. This could be better evaluated with CT if needed. Dictated by... Beau Guzman Jr., M.D. THIS IS AN ELECTRONICALLY VERIFIED REPORT Beau Guzman Jr., M.D. at 04/19/2017 9:52 PM ULICES/kevin TD: 04/19/2017 08:00 JOB #: [id number] MEDICAL IMAGING REPORT Page 1 of 1 COPY
--- NOTE | ~2017-04-18 | US140 ---
[facility] A Service of [facility] & [facility] RADIOLOGY TEXT RESULTS PATIENT: CASSIE CAMERON LOCATION: [facility] 569-01 : [birth year] UNIT #: [id number] AGE: [address]: Michelle Andre MD SEX: M ORDER DR: [id number] [facility] [address] [place], [place] [address] [id number] I MR#: [id number] Acc #: [id number] NAME: CASSIE CAMERON : 1985 SEX: M STUDY DATE/TIME: 04/24/2017 15:02 UNIT: [facility] ROOM: [facility] STUDY DESCRIPTION: US UE Veins Unilat or Ltd Stdy Attending Physician: Michelle Andre M.D. Ordering Physician: Jose Miguel Hendrix M.D. Primary Care Physician: No Primary Care Physician MEDICAL IMAGING REPORT This report is preliminary unless electronic signature is present EXAM Left upper extremity venous duplex 04/24/2017 HISTORY Left arm edema for 5 days. Evaluate for deep vein thrombosis. FINDINGS Edwards-scale images of the left upper extremity were obtained as well as Doppler waveform, spectral analysis and color flow Doppler imaging. The examination is abnormal demonstrating occlusive thrombus in the midportion of the left cephalic vein characteristic of superficial thrombophlebitis. There is normal blood flow and compressibility in the left internal jugular vein as well as left subclavian, axillary, brachial and basilic veins. IMPRESSION 1. No evidence of deep vein thrombosis within the left upper extremity. 2. Occlusive thrombus in the mid left cephalic vein characteristic of superficial thrombophlebitis. STAT * RESULT Dictated by... William Ugalde M.D. THIS IS AN ELECTRONICALLY VERIFIED REPORT William Ugalde M.D. at 04/25/2017 8:04 AM OSMAN/edna TD: 04/24/2017 16:02 JOB #: [id number] [facility] A Service of [facility] & [facility] RADIOLOGY TEXT RESULTS PATIENT: CASSIE CAMERON LOCATION: [facility] 569-01 : [birth year] UNIT #: [id number] AGE: [address]: Michelle Andre MD SEX: M ORDER DR: MEDICAL IMAGING REPORT Page 1 of 1 COPY
--- NOTE | ~2017-04-18 | HP ---
Unit #: [id number] #: [id number] Patient: HERNAN HESTER [id number] [address] [address] [id number] I MR#: [id number] NAME: HERNAN HESTER ROOM: CIC2 Age: 31 Sex: M Admission Date: 04/19/2017 : 1985 Attending Physician: Trina Christie M.D. Primary Care Physician: No Primary Care Physician HISTORY AND PHYSICAL CHIEF COMPLAINT Delirium, rhabdomyolysis, acute kidney injury, pneumonia, polysubstance abuse. HISTORY This 31-year-old male, with history of polysubstance abuse and hepatitis C per records, is admitted for delirium and acute kidney injury. Family is no longer present. I am told by the ER physician that the patient abused methamphetamines and Xanax for five days, and then did use some heroin. The family was called on 04/17/2017 that he was lying at, I believe, a friend's home. He was brought possibly home, by report, and left in bed somnolent. Late last evening they brought the patient to the emergency department where he was somewhat somnolent. He received Narcan in the ER, became somewhat more agitated, but currently is still delirious. In the course of his evaluation, he was found to have a CK of 52,000 with acute kidney injury. Chest x-ray is most consistent with pneumonia although septic emboli could not be excluded. In the ER, he was bolused with 2 L of saline, given Tylenol for a temperature of 101.8, given Zosyn IV along with vancomycin and tobramycin. Urine tox screen is positive for benzos and amphetamines. PAST MEDICAL HISTORY 1. Hepatitis C. 2. Polysubstance abuse. ALLERGIES None. HOME MEDICATIONS None. FAMILY HISTORY Unknown. SOCIAL HISTORY Unknown except that patient abuses drugs, possibly uses alcohol and possibly smokes one half pack per day, according to the T-sheet in the ER. REVIEW OF SYSTEMS Impossible to obtain as the patient is confused. PHYSICAL EXAMINATION GENERAL APPEARANCE: Confused 31-year-old male who is moving fairly Unit #: [id number] #: [id number] Patient: HERNAN HESTER constantly in bed. VITAL SIGNS: Temperature 101.8, pulse 123, respirations 24, blood pressure 141/89. O2 saturation 95% on room air. HEENT: Eyes PERRLA. Pharynx is benign. NECK: Supple without adenopathy or thyromegaly. CHEST: Some rhonchi. CARDIAC: Normal S1 and S2. Mildly tachycardic without definite murmur. ABDOMEN: Bowel sounds are present. No definite hepatosplenomegaly, tenderness or masses. EXTREMITIES: Without edema. No splinter hemorrhages noted over the nail beds. NEUROLOGIC: The patient is awake but does not follow commands. His neck is supple. His cranial nerves look to be intact. He has equal strength throughout. Really doesn't follow commands much at all. Is moving fairly constantly in bed. DIAGNOSTIC STUDIES LABORATORY: Admission labs - hematocrit is 51.1, white blood count is 14.1, normal platelet count, 35 bands noted. Initial troponin 0.28, second troponin is 0.14. Coags essentially normal. SMA-12 - BUN 82, creatinine 4.5 without previous values to compare to. Sodium 126, potassium 5.5, chloride is 93, CO2 is 19, AST is 1000, ALT 350. CPK of 52,000. Normal BNP. Lactic acid 3.9. Alcohol level negligible. ABG - pH 7.44, pCO2 27, pO2 76, O2 saturation is 94% on room air. Urine tox screen positive for benzos and amphetamines. Urinalysis - leukocyte esterase, protein, blood positive with 50-100 red cells, 2-5 white cells. CARDIOVASCULAR: EKG - sinus tachycardia, rate 124 with somewhat peaked T waves noted. IMAGING: Head CT - limited exam but no acute disease. Right maxillary sinusitis. Possible basal ganglia, lacunar infarcts versus dilated perivascular space. X-rays of the LS-spine, C-spine, T-spine are negative, although coccyx shows a possible fracture. Chest x-ray shows coarse bilateral infiltrates, especially the medial right base. Cannot exclude septic emboli. ASSESSMENT 1. Polysubstance abuse and drug-induced delirium. 2. Rhabdomyolysis and acute kidney injury with hyperkalemia after abusing amphetamines and Xanax for five days and then lying sleeping for a couple days. 3. Likely aspiration pneumonia but cannot exclude septic pulmonary emboli. The patient is septic. 4. Elevated liver function tests, likely related to rhabdomyolysis Unit #: [id number] #: [id number] Patient: HERNAN HESTER versus hepatitis. Patient apparently carries a diagnosis of hepatitis C. PLANS 1. Vancomycin and Zosyn. The patient received one dose of tobra which I will not continue at this time. 2. IV fluids with bicarb. 3. Medications for hyperkalemia. 4. Check HIV and hepatitis profile. 5. SCDs for DVT prophylaxis. 6. Repeat all labs including lactic acid level shortly. 7. CT scan of the chest this morning to rule out septic pulmonary emboli. 8. Blood cultures are pending. 9. Nephrology and pulmonary consultation. 10. Prognosis is very guarded at this point. 11. Will recheck cardiac enzymes. Critical care time spent in evaluating this patient was 40 minutes. Dictated by Trina Christie M.D. BHAVIN/nava TD: 04/19/2017 07:26 JOB #: [id number] HISTORY AND PHYSICAL Page 1 of 1 X Trina Christie MD X HISTORY AND PHYSICAL
--- NOTE | ~2017-04-18 | CO ---
Unit #: [id number] #: [id number] Patient: CASSIE HALE [id number] [address] [place], [place] [address] [id number] I MR#: [id number] NAME: HERNAN HESTER ROOM: CIC2 Age: 31 Sex: M Admission Date: 04/19/2017 : 1985 Attending Physician: Janell Mcfarlane M.D. CONSULTATION REPORT REVISED REPORT HISTORY OF PRESENT ILLNESS This is a 31-year-old white male, brought in with altered mental status. The patient is known to have intravenous drug use and brought in with likely drug overdose. The patient's creatinine level is noted to be 4.5 this morning with the CK level of 41,027, lactic acid is 3.9. The hemoglobin is 17.3. The patient also has a vague history as per records of hepatitis C. PAST MEDICAL HISTORY Not reliably available and as per records is IV drug use. PAST SURGICAL HISTORY Unremarkable. SOCIAL HISTORY Intravenous drug use regularly. There is no drink or smoke. ALLERGIES No known drug allergies. FAMILY HISTORY Unremarkable. REVIEW OF SYSTEMS Not available. PHYSICAL EXAMINATION GENERAL: On examination, the patient is tachypneic. VITAL SIGNS: Temperature is 98.9, heart rate is 119 per minute, blood pressure is 148/81, and saturation is 100%. HEENT: Head is atraumatic. Extraocular moments are intact. Sclerae are anicteric. NECK: Supple. There is no elevation of the JVD. CHEST: Clear. Air entry is equal bilaterally. Breathing is vesicular in nature. S1 and S2 audible. There is no S3, no S4. ABDOMEN: Soft. There is no organomegaly. No guarding. No rigidity. No rebound tenderness. There is no edema. ENDOSCOPY SUPPORT SPECIALIST: Limited, but more systems seems intact. LABORATORY DATA Sodium is 135, potassium is 4.9, chloride is 99, CO2 is 22, BUN is 81, creatinine is 4.5, glucose is 78, and calcium is 8. CK is 41,027. Lactic Unit #: [id number] #: [id number] Patient: CASSIE HALE acid is 3.9. WBC is 14.1, hemoglobin 17.3, hematocrit 51.1 with platelets of 251. The HIV is nonreactive. The urinalysis has 50 to 100 rbc, 3+ blood. The urine drug screen is positive for amphetamines. IMPRESSION 1. Acute kidney injury likely acute tubular necrosis secondary to rhabdomyolysis and likely hypotension. We will check the renal ultrasound for obstruction, also check for cryoglobulins. Urinalysis is suggestive of rhabdomyolysis with elevated CK levels. There is no acute need for dialysis. We will hydrate with IV bicarbonate. The sepsis, endocarditis workup is in progress. No acute need for dialysis, we will continue to follow. The acid bases acceptable, but we will continue to give IV bicarbonate. 2. History of hepatitis C, recheck hep C levels. 3. Respiratory distress, might need to be intubated. We will defer that to the Critical Care. We will follow the patient with you. *DICTATOR MODIFIED* Dictated by... Rian Urbina M.D. RA/tirso TD: 04/20/2017 06:54 JOB #: [id number] CONSULTATION REPORT Page 1 of 1 X Rian Urbina MD X CONSULTATION REPORT
--- NOTE | ~2017-04-18 | CT71 ---
[facility] A Service of [facility] RADIOLOGY TEXT RESULTS PATIENT: HERNAN HESTER LOCATION: [address] : [birth year] UNIT #: [id number] AGE: [address]: aJnell Mcfarlane MD SEX: M ORDER DR: [id number] [facility] [address] [facility]. [place], [place] [address] [id number] I MR#: [id number] Acc #: [id number] NAME: HERNAN HESTRE : 1985 SEX: M STUDY DATE/TIME: 04/19/2017 00:52 UNIT: [facility] ROOM: [facility] STUDY DESCRIPTION: CT Head Wo Contrast Attending Physician: Janell Mcfarlane M.D. Ordering Physician: Perlita White M.D. Primary Care Physician: No Primary Care Physician MEDICAL IMAGING REPORT This report is preliminary unless electronic signature is present EXAM Head CT, 04/19 at 00:52. INDICATIONS Patient overdose. Patient currently unresponsive. Symptoms for 24 hours. COMPARISON None. TECHNIQUE This CT exam was performed with one or more of the following radiation dose reduction techniques: automatic exposure control, adjustment of mA and/or kV according to patient size, and iterative reconstruction. FINDINGS Axial images were obtained from the base to the vertex without contrast. Exam is degraded by excessive motion despite repeating it. No skull fracture. There is chronic mucosal thickening in the right maxillary sinus and there may be a fluid level suggesting mild acute disease. Ventricular size and configuration are within normal limits. There are bilateral dilated perivascular spaces versus old lacunar infarcts in the basal ganglia. No definite acute infarct or hemorrhage. No masses are seen. Edwards/white matter differentiation is preserved at this time. IMPRESSION Exam is degraded by excessive motion despite repeating it. No gross intracranial abnormality is seen and there is nothing to suggest a skull fracture. There are old bilateral basal ganglia lacunar infarcts versus dilated perivascular spaces. There is a right maxillary sinusitis. Dictated by... Beau Guzman Jr., M.D. [facility] A Service [facility] RADIOLOGY TEXT RESULTS PATIENT: HERNAN HESTER LOCATION: CICCU2 CICCU2-09 : [birth year] UNIT #: [id number] AGE: [address]: Janell Mcfarlane MD SEX: M ORDER DR: THIS IS AN ELECTRONICALLY VERIFIED REPORT Beau Guzman Jr., M.D. at 04/19/2017 9:52 PM ULICES/ji TD: 04/19/2017 08:09 JOB #: [id number] MEDICAL IMAGING REPORT Page 1 of 1 COPY
--- NOTE | ~2017-04-18 | CR243 ---
[facility] A Service of [facility] & [facility] RADIOLOGY TEXT RESULTS PATIENT: HERNAN HESTER LOCATION: [address] : [birth year] UNIT #: [id number] AGE: [address]: Janell Mcfarlane MD SEX: M ORDER DR: [id number] [facility] [address] [facility]. [place], [place] [address] [id number] I MR#: [id number] Acc #: [id number] NAME: HERNAN HESTER : 1985 SEX: M STUDY DATE/TIME: 04/19/2017 01:37 UNIT: [facility] ROOM: [facility] STUDY DESCRIPTION: CR Thoracic Spine 3 Views Attending Physician: Janell Mcfarlane M.D. Ordering Physician: Perlita White M.D. Primary Care Physician: Primary Care Physician No MEDICAL IMAGING REPORT This report is preliminary unless electronic signature is present EXAM Thoracic spine, 04/19 at 01:37 INDICATION Back pain after patient found down following overdose today. FINDINGS Three views of the thoracic spine were obtained. No fracture or malalignment is seen. Note is made of infiltrates in the lungs, most severe in the right middle lobe. These presumably reflect pneumonia. Septic emboli not excluded. IMPRESSION The thoracic spine is negative. Infiltrates in the lungs are most severe in the right middle lobe and presumably reflect pneumonia. Septic emboli may be present. Dictated by... Beau Guzman Jr., M.D. THIS IS AN ELECTRONICALLY VERIFIED REPORT Beau Guzman Jr., M.D. at 04/19/2017 9:53 PM ULICES/kevin TD: 04/19/2017 08:25 JOB #: [id number] MEDICAL IMAGING REPORT Page 1 of 1 COPY
--- NOTE | ~2017-04-18 | CR219 ---
[facility] A Service of [facility] & [facility] RADIOLOGY TEXT RESULTS PATIENT: HERNAN HESTER LOCATION: [address] : [birth year] UNIT #: [id number] AGE: [address]: Janell Mcfarlane MD SEX: M ORDER DR: [id number] [facility] [address] [facility]. [place], [place] [address] [id number] I MR#: [id number] Acc #: [id number] NAME: HERNAN HESTER : 1985 SEX: M STUDY DATE/TIME: 04/19/2017 00:08 UNIT: [facility] ROOM: [facility] STUDY DESCRIPTION: CR Sacrum and Coccyx Min 2 Vie Attending Physician: Janell Mcfarlane M.D. Ordering Physician: Perlita White M.D. Primary Care Physician: Primary Care Physician No MEDICAL IMAGING REPORT This report is preliminary unless electronic signature is present EXAM Sacrum and coccyx, 04/19 at 00:08 hours INDICATIONS Patient found down after overdose today. Tailbone pain. FINDINGS Three views of the sacrum and coccyx were obtained. No comparison. No sacroiliac joint diastasis is seen. There is a potential coccyx fracture. I have no basis for comparison. Both hips demonstrate normal alignment. IMPRESSION Findings are suspicious for a coccyx fracture. The exam is otherwise negative. Dictated by... Beau Guzman Jr., M.D. THIS IS AN ELECTRONICALLY VERIFIED REPORT Beau Guzman Jr., M.D. at 04/19/2017 9:52 PM ULICES/kevin TD: 04/19/2017 08:02 JOB #: [id number] MEDICAL IMAGING REPORT Page 1 of 1 COPY
--- NOTE | ~2017-04-18 | EKG ---
PATIENT: HERNAN HESTER UNIT #: [id number] Ventricular Rate: 124 BPM Atrial Rate: 124 BPM P-R Interval: 120 ms QRS Duration: 78 ms Q-T Interval: 278 ms QTC Calculation(Bezet): 399 ms P [place]: 66 degrees Calculated R [place]: -147 degrees Calculated T [place]: 70 degrees Diagnosis Line: Sinus tachycardia Diagnosis Line: Right superior axis deviation Diagnosis Line: Abnormal ECG Diagnosis Line: No previous ECGs available Diagnosis Line: Confirmed by JUSTINE DIAZ MD ([id number]) on Diagnosis Line: 04/20/2017 7:15:16 AM INTERPRETING MD: SONNY
--- NOTE | ~2017-04-18 | DS ---
Unit #: [id number] #: [id number] Patient: CASSIE CAMERON [id number] [address] [address] [id number] I MR#: [id number] NAME: CASSIE CAMERON ROOM: 569 Age: 31 Sex: M Admission Date: 04/19/2017 : 1985 Discharge Date: Attending Physician: Michelle Andre M.D. Primary Care Physician: No Primary Care Physician DISCHARGE SUMMARY DISCHARGE DIAGNOSES 1. Acute hypoxic brain injury. 2. Change in mental status, likely from hypoxic brain injury. Also, toxic metabolic encephalopathy. 3. Aspiration pneumonia. 4. Possible septic emboli on CT. 5. Polysubstance abuse including IV drug abuse and IV drug dependence on a daily use. 6. Acute rhabdomyolysis. 7. Acute kidney injury with chronic kidney disease, likely stage 3. 8. Acute tubular wibt1euol. 9. Hepatitis C positive. 10. Severe protein malnutrition. 11. Hypokalemia. 12. Elevated troponin, likely from acute rhabdo and drug abuse. 13. Sepsis, present on admission. 14. Hyperphosphatemia. 15. Hypokalemia. 16. Moderate protein malnutrition. 17. Diarrhea, no Clostridium difficile. 18. Less likely meningoencephalitis as per Dr. Cantu. LAB DATA Sodium 136, potassium 3.6, creatinine 2.1, calcium 7.8, WBC 12.2, hemoglobin 10.9, platelets 263. C. diff negative. CT of the chest without contrast shows extensive multifocal nodular bilateral densities present, likely septic emboli and pneumonia. MRI of the brain shows scattered increase due to signal bilaterally. Differential includes toxic metabolic encephalopathy, carbon monoxide poisoning. Please see MRI report dictated by radiology for full report. Hepatitis C positive. Ultrasound of the extremities shows no evidence of DVT. CT of the head shows excessive motion degraded film. ALLERGIES None. DISCHARGE MEDICATIONS 1. Loperamide 2 mg three times daily p.r.n. diarrhea. Unit #: [id number] #: [id number] Patient: CASSIE CAMERON 2. Risperdal 0.25 mg p.o. daily. 3. Hydralazine 25 p.o. three times daily. HOSPITALIZATION COURSE 31-year-old admitted because of change in mental status. Change in mental status: Initially, thought it was drug-induced and delirium but later patient was still lethargic and confused and neurology has been contacted. Dr. Cantu confirmed hypoxic brain injury. Also, differential diagnosis was meningoencephalitis and CSF shows reactive WBC, otherwise no growth. Dr. Cantu ruled out meningoencephalitis because there was no growth in the CSF and he thinks that WBC is likely reactive. Later, hypoxic brain injury has been diagnosed from mostly polysubstance abuse including IV drug abuse. Currently, patient is still confused and lethargic intermittently. He sleeps a lot. According to the girlfriend, Irma, she thinks he is depressed also so depression management has been started. He will be benefited from psychiatrist for drug rehab as an outpatient for also his depression. Dr. Worthington saw this patient. Abnormal CT with bilateral pulmonary infiltrates, likely pulmonary emboli and aspiration pneumonia: The patient was seen by infectious disease. Patient was started on broad spectrum antibiotics. He completed his course, currently off antibiotics. Afebrile. WBC normal. They recommend no antibiotics needed for that. Acute kidney injury, likely with a chronic kidney disease, stage 2 or 3: He came with a creatinine of 4, currently it is 2. He also has acute rhabdomyolysis, likely the source of kidney injury. The patient received IV fluids, currently stable. He does need follow up with renal as an outpatient. Sepsis, likely from aspiration pneumonia, present on admission. Antibiotics have been given and treatment as per infectious disease. Hepatitis C positive, likely from IV drug abuse: He needs to follow [facility] for outpatient follow up once he is done with his rehab. Elevated troponin, likely from rhabdomyolysis. No acute chest pain or shortness of breath. Electrolyte imbalance, replace. Discussed with girlfriend. She is okay for him to go to rehab. Discussed with his father. Waiting on rehab bed availability, pre-cert and insurance to agree for the rehab. Will discharge this patient to rehab once bed available. Patient needs to follow with Dr. Rian Urbina in two weeks time; Dr. Worthington, psychiatrist, in two to three weeks time; Dr. Corey Bustillo, neurology, in two to three weeks times. Discharge time taken is 46 minutes. Dictated by... Unit #: [id number] #: [id number] Patient: CASSIE CAMERON M.D. KJ/df TD: 05/01/2017 12:28 JOB #: [id number] DISCHARGE SUMMARY Page 1 of 1 X Michelle Andre MD X DISCHARGE SUMMARY
--- NOTE | ~2017-04-18 | CT57 ---
[facility] A Service [facility] RADIOLOGY TEXT RESULTS PATIENT: CASSIE CAMERON LOCATION: [facility] : [birth year] UNIT #: [id number] AGE: [address]: Michelle Andre MD SEX: M ORDER DR: [id number] [facility] [address]. [place], [place] [address] [id number] I MR#: [id number] Acc #: [id number] NAME: CASSIE CAMERON : 1985 SEX: M STUDY DATE/TIME: 04/21/2017 16:33 UNIT: [facility] ROOM: [facility] STUDY DESCRIPTION: CT Chest Wo Cont Attending Physician: Michelle Andre M.D. Ordering Physician: Jai Urbina M.D. Primary Care Physician: Primary Care Physician No MEDICAL IMAGING REPORT This report is preliminary unless electronic signature is present EXAM CT chest without contrast HISTORY Pneumonia for 5 days. Drug overdose. TECHNIQUE This CT exam was performed with one or more of the following radiation dose reduction techniques: automatic exposure control, adjustment of mA and/or kV according to patient size, and iterative reconstruction. FINDINGS CT chest without contrast demonstrates extensive, multifocal, moderately dense, bilateral, patchy, nodular, subsegmental infiltrates, including rounded and partly defined nodularity bilaterally. The findings are slightly more extensive in the mid- and lower lungs bilaterally. There are associated patchy airspace infiltrates in the bilateral lower lobes. Given the patient's history, findings are concerning for multifocal pneumonia or septic emboli, but are not specific. There are very small bilateral pleural effusions. No adenopathy. IMPRESSION Extensive, multifocal, patchy and nodular bilateral pulmonary densities throughout both lungs, slightly more extensive in the mid- and lower lungs. Differential considerations include multifocal pneumonia and septic emboli. Very small bilateral pleural effusions and mild atelectasis in the posterior lower lobes. Dictated by... Palmer Sifuentes M.D. [facility] A Service [facility] RADIOLOGY TEXT RESULTS PATIENT: CASSIE CAMERON LOCATION: [facility] : 87 UNIT #: [id number] AGE: [address]: Michelle Andre MD SEX: M ORDER DR: THIS IS AN ELECTRONICALLY VERIFIED REPORT Palmer Sifuentes M.D. at 04/29/2017 10:33 PM DFL/pcl TD: 04/22/2017 00:24 JOB #: [id number] MEDICAL IMAGING REPORT Page 1 of 1 COPY
--- NOTE | ~2017-04-18 | US77 ---
[facility] A Service of [facility] & [facility] RADIOLOGY TEXT RESULTS PATIENT: CASSIE HALE LOCATION: [facility] 569-01 : 87 UNIT #: [id number] AGE: [address]: Janell Mcfarlane MD SEX: M ORDER DR: [id number] [facility] [address] [facility] [place], [place] [address] [id number] I MR#: [id number] Acc #: [id number] NAME: CASSIE HALE : 1985 SEX: M STUDY DATE/TIME: 04/20/2017 13:57 UNIT: CICCU2 ROOM: [facility] STUDY DESCRIPTION: US Kidney Bilateral Complete Attending Physician: Janell Mcfarlane M.D. Ordering Physician: Ed Doctor [id number] [facility] Primary Care Physician: Primary Care Physician No MEDICAL IMAGING REPORT This report is preliminary unless electronic signature is present EXAM Renal ultrasound. INDICATIONS Acute renal failure. Patient's estimated GFR is 15.6, creatinine is 4.71. Patient has a history of hepatitis C and polysubstance abuse. TECHNIQUE Edwards-scale and color Doppler sonographic images were obtained through the patient's kidneys and bladder. FINDINGS There is no evidence of hydronephrosis on either side. The right kidney measures 10.3 x 5.3 x 5.3 cm. Left kidney measures 9.7 x 4.9 x 6.3 cm, both kidneys are echogenic, although, I do not see any evidence of cortical thinning. No solid or cystic renal masses are seen. Patient's bladder is decompressed with a Adkins catheter. IMPRESSION This patient's kidneys are echogenic bilaterally. This finding can be seen in the setting of chronic medical disease. No hydronephrosis is seen and no solid or cystic renal masses are identified. Dictated by... Dee Blake M.D. THIS IS AN ELECTRONICALLY VERIFIED REPORT Dee Blake M.D. at 04/21/2017 3:24 PM AFF/jt [facility] A Service of [facility] & [facility] RADIOLOGY TEXT RESULTS PATIENT: CASSIE HALE LOCATION: [facility] 569-01 : 87 UNIT #: [id number] AGE: [address]: Janell Mcfarlane MD SEX: M ORDER DR: TD: 04/20/2017 21:51 JOB #: [id number] MEDICAL IMAGING REPORT Page 1 of 1 COPY
--- NOTE | ~2017-04-18 | CO ---
Unit #: [id number] #: [id number] Patient: CASSIE CAMERON [id number] [facility] [address] [facility]. [place], [place] [address] [id number] I MR#: [id number] NAME: CASSIE CAMERON ROOM: 569 Age: 31 Sex: M Admission Date: 04/19/2017 : 1985 Attending Physician: Michelle Andre M.D. Primary Care Physician: Primary Care Physician No CONSULTATION REPORT His real name is Carlos Shipman. REASON FOR CONSULTATION Followup. DISCUSSION Mr. Cassie Cameron/Carlos Shipman is a 31-year-old white male, seen in room 569, bed 1 at [facility]. The patient dressed in hospital attire, lying comfortably in bed, no agitation. The patient's significant other was also in the same room. The patient somewhat guarded, paranoid, poor memory, unable to give any reliable information, sleepy, drowsy. The patient's vital signs; temperature 98.3, pulse 82, respiratory rate 16, blood pressure 179/83, and oxygen saturation 97%. The patient was on Ativan, which was discontinued yesterday. Haldol was discontinued. The patient has been calm, cooperative, able to follow commands, follow direction, but unable to give any reliable information, somewhat sleepy, guarded, no agitation. Denied any thoughts of harming self or others. REVIEW OF SYSTEMS Complete review of systems unremarkable. MENTAL STATUS EXAMINATION The patient's vital signs; temperature 98.0, pulse 75, respiratory rate 16, blood pressure 146/92, and oxygen saturation 97%. General appearance; the patient dressed in hospital attire. Attention span and concentration, poor. Speech, slow in volume and rate. Orientation in self. Mood and affect, labile. Thought process, circumstantial. Thought content, guarded, unable to answer question about suicidal or homicidal ideation. Recent and remote memory, poor. Language, fair. Fund of knowledge, poor. Insight and judgment, impaired. 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 ASSESSMENT/PLAN 1. Supportive psychotherapy and psychoeducation provided to the patient, but the patient unable to comprehend much at this time. 2. Advised to continue with current treatment protocol. If needed, consider medication. The patient is currently on vancomycin, haloperidol was discontinued. Please feel free to call if any questions, telephone #[phone]. Unit #: [id number] #: [id number] Patient: CASSIE CAMERON Dictated by... Molly Sena/tirso TD: 04/26/2017 22:52 JOB #: [id number] CONSULTATION REPORT Page 1 of 1 X Miguel Angel Worthington MD X CONSULTATION REPORT
[2017-04-19 00:27] LABS: POC - CKMB >80.0 ng/mL (0.0-7.9); POC - TROPONIN 0.28 ng/mL (<=0.05)
[2017-04-19 00:41] LABS: BASOPHIL% 0.1 % (0-2.5); HEMATOCRIT 51.1 % (38.0-50.0); HEMOGLOBIN 17.3 gm/dL (13.0-16.0); LYMPHOCYTE# 0.3 X10e3 (1.0-3.5); LYMPHOCYTE% 2.4 % (17.0-45.0); MEAN CELL VOLUME 92.2 FL (83-96); MEAN CORPUSCULAR HEMOGLOBIN 31.2 PG (28-34); MEAN CORPUSCULAR HGB CONC 33.9 g/dL (30-36); MEAN PLATELET VOLUME 9.2 FL (6.5-11.5); MONOCYTE# 0.5 X10e3 (0-1.0); MONOCYTE% 3.2 % (3.0-12.0); NEUTROPHIL# 13.3 X10e3 (1.5-7.1); NEUTROPHIL% 94.3 % (40-75); PLATELET COUNT 251 X10e3 (140-420); RED BLOOD COUNT 5.54 X10e (3.90-5.60); RED CELL DISTRIBUTION WIDTH 12.8 % (11.0-15.5); WHITE BLOOD COUNT 14.1 X10e3 (4.0-10.5)
[2017-04-19 00:42] LABS: DIFF IND YES
[2017-04-19 00:42] LABS: ARTERIAL BLD GAS O2 SATURATION 94.3 % (90.0-100.0); ARTERIAL BLOOD GAS ART SITE RIGHT FEMORAL; ARTERIAL BLOOD GAS CARBOXY HB 0.5 %sat (0.0-9.0); ARTERIAL BLOOD GAS MET HB 0.8 %sat (0.0-2.0); ARTERIAL BLOOD GAS PCO2 27.6 mmHg (35.0-45.0); ARTERIAL BLOOD GAS PO2 76.2 mmHg (80.0-100); ARTERIAL BLOOD GAS pH 7.447 (7.350-7.450); ARTERIAL DRAW? YES
[2017-04-19 00:43] LABS: INR 1.2; PARTIAL THROMBOPLASTIN TIME 31.5 SECONDS (23.5-31.3)
[2017-04-19 00:45] LABS: URINE SOURCE CLEAN CATCH
[2017-04-19 00:50] LABS: URINE APPEARANCE CLOUDY; URINE BILIRUBIN NEG (NEG); URINE BLOOD 3+ (NEG); URINE COLOR DK YELLOW; URINE GLUCOSE NEG (NEG); URINE KETONE TRACE (NEG); URINE LEUKOCYTE ESTERASE TRACE (NEG); URINE NITRATE NEG (NEG); URINE PROTEIN 1+ (NEG); URINE UROBILINOGEN 0.2 MG/DL (NEG)
[2017-04-19 00:52] LABS: URBCS1 AUWI 50-100 /[HPF] (0-2); URINE BACTERIA AUWI NEG (NEGATIVE); URINE SQUAMOUS EPITHELIAL CELL OCC /[HPF]
[2017-04-19 00:55] LABS: PLATELET ESTIMATE NORMAL (NORMAL)
[2017-04-19 00:56] LABS: RBC NORMAL YES
[2017-04-19 01:06] LABS: ALBUMIN SERUM 4.1 g/dL (3.5-5.0); ALKALINE PHOSPHATASE 57 U/L (32-92); ALT (SGPT) 345 U/L (10-40); AST (SGOT) 1040 U/L (10-42); BILIRUBIN, DIRECT 0.2 mg/dL (0.0-0.2); BILIRUBIN,INDIRECT 0.8 mg/dL (0.0-0.9); BLOOD UREA NITROGEN 82 mg/dL (9-23); BUN/CREATININE RATIO 18.22; CALCIUM SERUM 8.6 mg/dL (8.4-10.2); CARBON DIOXIDE 19 mmol/L (22-31); CHLORIDE 93 mmol/L (100-111); CREATININE SERUM 4.5 mg/dL (0.6-1.4); GLOM FILT RATE Estimated 16.4 mL/min (>60); GLUCOSE FASTING 101 mg/dL (70-110); MAGNESIUM 1.8 mg/dL (1.6-3.0); PROTEIN TOTAL SERUM 7.6 g/dL (6.0-8.3); SODIUM 126 mmol/L (135-145)
[2017-04-19 01:07] LABS: CULTURE INDICATED? NO; URINE GRANULAR CAST 0-2 /[HPF]
[2017-04-19 01:09] LABS: AMPHETAMINE POS (NEG); BARBITURATES NEG (NEG); BENZODIAZEPINES POS (NEG); COCAINE NEG (NEG); MARIJUANA NEG (NEG); OPIATES NEG (NEG); TRICYCLIC ANTIDEPRESSANTS NEG (NEG); U METHADONE NEG (NEG)
[2017-04-19 01:11] LABS: ALCOHOL BLOOD <5 mg/dL (0); POTASSIUM 5.5 mmol/L (3.5-5.1)
[2017-04-19 01:25] LABS: CPK (CREATINE PHOSPHOKINASE) 51900 IU/L (36-174)
[2017-04-19 02:14] LABS: POC - CKMB >80.0 ng/mL (0.0-7.9); POC - TROPONIN 0.14 ng/mL (<=0.05)
[2017-04-19 07:02] LABS: BASOPHIL% 0.3 % (0-2.5); EOSINOPHIL% 0.1 % (0.0-7.0); HEMATOCRIT 42.4 % (38.0-50.0); LYMPHOCYTE# 0.3 X10e3 (1.0-3.5); MEAN CELL VOLUME 92.8 FL (83-96); MEAN CORPUSCULAR HEMOGLOBIN 31.2 PG (28-34); MEAN CORPUSCULAR HGB CONC 33.6 g/dL (30-36); MEAN PLATELET VOLUME 8.5 FL (6.5-11.5); MONOCYTE# 0.3 X10e3 (0-1.0); MONOCYTE% 2.7 % (3.0-12.0); NEUTROPHIL# 10.3 X10e3 (1.5-7.1); NEUTROPHIL% 93.9 % (40-75); PLATELET COUNT 191 X10e3 (140-420); RED BLOOD COUNT 4.56 X10e (3.90-5.60); RED CELL DISTRIBUTION WIDTH 12.7 % (11.0-15.5); WHITE BLOOD COUNT 10.9 X10e3 (4.0-10.5)
[2017-04-19 07:04] LABS: DIFF IND NO; HEMOGLOBIN 14.2 gm/dL (13.0-16.0)
[2017-04-19 08:06] LABS: ALBUMIN SERUM 2.8 g/dL (3.5-5.0); BILIRUBIN,TOTAL 1.3 mg/dL (0.2-2.0); CREATININE SERUM 4.5 mg/dL (0.6-1.4); GLOM FILT RATE Estimated 16.4 mL/min (>60); POTASSIUM 4.9 mmol/L (3.5-5.1)
[2017-04-19 16:55] LABS: BUN/CREATININE RATIO 17.08; CREATININE SERUM 4.8 mg/dL (0.6-1.4); GLOM FILT RATE Estimated 15.2 mL/min (>60); POTASSIUM 4.7 mmol/L (3.5-5.1)
[2017-04-20 05:39] LABS: BASOPHIL% 0.2 % (0-2.5); EOSINOPHIL% 0.1 % (0.0-7.0); HEMATOCRIT 39.2 % (38.0-50.0); HEMOGLOBIN 13.2 gm/dL (13.0-16.0); LYMPHOCYTE# 0.5 X10e3 (1.0-3.5); LYMPHOCYTE% 3.9 % (17.0-45.0); MEAN CELL VOLUME 92.1 FL (83-96); MEAN CORPUSCULAR HGB CONC 33.7 g/dL (30-36); MEAN PLATELET VOLUME 8.5 FL (6.5-11.5); MONOCYTE# 0.5 X10e3 (0-1.0); MONOCYTE% 3.9 % (3.0-12.0); NEUTROPHIL# 11.3 X10e3 (1.5-7.1); NEUTROPHIL% 91.9 % (40-75); PLATELET COUNT 159 X10e3 (140-420); RED BLOOD COUNT 4.25 X10e (3.90-5.60); RED CELL DISTRIBUTION WIDTH 12.8 % (11.0-15.5); WHITE BLOOD COUNT 12.3 X10e3 (4.0-10.5)
[2017-04-20 05:41] LABS: DIFF IND NO
[2017-04-20 08:14] LABS: ALBUMIN SERUM 2.4 g/dL (3.5-5.0); BILIRUBIN,TOTAL 0.9 mg/dL (0.2-2.0); BUN/CREATININE RATIO 17.23; CREATININE SERUM 4.7 mg/dL (0.6-1.4); GLOM FILT RATE Estimated 15.6 mL/min (>60); POTASSIUM 4.3 mmol/L (3.5-5.1); PROTEIN TOTAL SERUM 4.9 g/dL (6.0-8.3)
[2017-04-21 06:37] LABS: GLOM FILT RATE Estimated 18.9 mL/min (>60)
[2017-04-21 07:10] LABS: BUN/CREATININE RATIO 22.36; CALCIUM SERUM 7.9 mg/dL (8.4-10.2); CREATININE SERUM 3.8 mg/dL (0.6-1.4); GLOM FILT RATE Estimated 20.2 mL/min (>60); POTASSIUM 3.8 mmol/L (3.5-5.1)
[2017-04-21 12:23] LABS: URINE SOURCE CATH
[2017-04-21 12:38] LABS: URINE APPEARANCE CLEAR; URINE BILIRUBIN NEG (NEG); URINE BLOOD 2+ (NEG); URINE COLOR YELLOW; URINE GLUCOSE NEG (NEG); URINE KETONE 1+ (NEG); URINE LEUKOCYTE ESTERASE TRACE (NEG); URINE NITRATE NEG (NEG); URINE PROTEIN 1+ (NEG); URINE SPECIFIC GRAVITY 1.018 (1.003-1.035); URINE UROBILINOGEN 0.2 MG/DL (NEG)
[2017-04-21 12:41] LABS: URINE BACTERIA AUWI NEG (NEGATIVE); URINE SQUAMOUS EPITHELIAL CELL NONE SEEN /[HPF]; UWBCS1 AUWI 0-2 (0-5)
[2017-04-21 14:28] LABS: PARTIAL THROMBOPLASTIN TIME 28.9 SECONDS (23.5-31.3); PROTHROMBIN TIME (PATIENT) 10.4 SECONDS (10.0-11.7)
[2017-04-21 17:26] LABS: GLUCOSE-CSF 66 mg/dL (50-80); PROTEIN-CSF 49 mg/dL (15-45)
[2017-04-21 18:13] LABS: CSF TUBE NUMBER 4; CSF XANTHACHROMIC NO
[2017-04-21 18:14] LABS: CSF APPEARANCE CLEAR (CLEAR)
[2017-04-21 18:16] LABS: CSF LYMPHOCYTE 16 %; CSF NEUTROPHIL 79 %; CSF RBC 708 CMM (0); CSF WBC 8 CMM (0-8)
[2017-04-21 18:17] LABS: CSF MONOCYTE 5 %
[2017-04-22 09:46] LABS: BASOPHIL# 0.1 X10e3 (0-0.3); BASOPHIL% 0.6 % (0-2.5); EOSINOPHIL# 0.2 X10e3 (0-0.7); EOSINOPHIL% 1.1 % (0.0-7.0); HEMATOCRIT 43.1 % (38.0-50.0); HEMOGLOBIN 14.2 gm/dL (13.0-16.0); LYMPHOCYTE# 0.7 X10e3 (1.0-3.5); LYMPHOCYTE% 4.9 % (17.0-45.0); MEAN CELL VOLUME 92.5 FL (83-96); MEAN CORPUSCULAR HEMOGLOBIN 30.5 PG (28-34); MEAN CORPUSCULAR HGB CONC 32.9 g/dL (30-36); MEAN PLATELET VOLUME 8.4 FL (6.5-11.5); MONOCYTE# 1.7 X10e3 (0-1.0); MONOCYTE% 12.6 % (3.0-12.0); NEUTROPHIL# 10.8 X10e3 (1.5-7.1); NEUTROPHIL% 80.8 % (40-75); PLATELET COUNT 116 X10e3 (140-420); RED BLOOD COUNT 4.66 X10e (3.90-5.60); RED CELL DISTRIBUTION WIDTH 12.7 % (11.0-15.5); WHITE BLOOD COUNT 13.4 X10e3 (4.0-10.5)
[2017-04-22 09:47] LABS: DIFF IND NO
[2017-04-22 10:54] LABS: ALBUMIN SERUM 2.1 g/dL (3.5-5.0); BILIRUBIN,TOTAL 0.9 mg/dL (0.2-2.0); BUN/CREATININE RATIO 25.55; CALCIUM SERUM 7.6 mg/dL (8.4-10.2); CREATININE SERUM 2.7 mg/dL (0.6-1.4); GLOM FILT RATE Estimated 30.5 mL/min (>60); POTASSIUM 3.4 mmol/L (3.5-5.1); PROTEIN TOTAL SERUM 4.4 g/dL (6.0-8.3)
[2017-04-23 09:14] LABS: HEMOGLOBIN 14.3 gm/dL (13.0-16.0); MEAN CELL VOLUME 91.7 FL (83-96); MEAN CORPUSCULAR HEMOGLOBIN 30.5 PG (28-34); MEAN CORPUSCULAR HGB CONC 33.3 g/dL (30-36); MEAN PLATELET VOLUME 8.1 FL (6.5-11.5); RED BLOOD COUNT 4.69 X10e (3.90-5.60); RED CELL DISTRIBUTION WIDTH 12.7 % (11.0-15.5); WHITE BLOOD COUNT 15.4 X10e3 (4.0-10.5)
[2017-04-23 09:37] LABS: BUN/CREATININE RATIO 21.6; CALCIUM SERUM 7.8 mg/dL (8.4-10.2); CREATININE SERUM 2.5 mg/dL (0.6-1.4); GLOM FILT RATE Estimated 33.5 mL/min (>60); POTASSIUM 3.4 mmol/L (3.5-5.1)
[2017-04-23 19:31] LABS: HA AB IGM (HEPPAN) Nonreactive (()); HB CORE AB IGM (HEPPAN) Nonreactive (Nonreactive); HB S AG (HEPPAN) Nonreactive (Nonreactive); HEP C AB (HEPPAN) Reactive (Nonreactive)
[2017-04-24 06:26] LABS: BUN/CREATININE RATIO 19.56; CALCIUM SERUM 7.7 mg/dL (8.4-10.2); CREATININE SERUM 2.3 mg/dL (0.6-1.4); POTASSIUM 4.5 mmol/L (3.5-5.1)
[2017-04-24 16:47] LABS: HEMATOCRIT 42.6 % (38.0-50.0); HEMOGLOBIN 13.8 gm/dL (13.0-16.0); MEAN CORPUSCULAR HEMOGLOBIN 30.2 PG (28-34); MEAN CORPUSCULAR HGB CONC 32.5 g/dL (30-36); MEAN PLATELET VOLUME 8.6 FL (6.5-11.5); RED BLOOD COUNT 4.58 X10e (3.90-5.60); RED CELL DISTRIBUTION WIDTH 12.9 % (11.0-15.5); WHITE BLOOD COUNT 16.2 X10e3 (4.0-10.5)
[2017-04-25 16:37] LABS: AMPHETAMINE NEG (NEG); BARBITURATES NEG (NEG); BENZODIAZEPINES NEG (NEG); COCAINE NEG (NEG); MARIJUANA NEG (NEG); OPIATES NEG (NEG); TRICYCLIC ANTIDEPRESSANTS NEG (NEG); U METHADONE NEG (NEG)
[2017-04-25 19:27] LABS: HEMATOCRIT 43.9 % (38.0-50.0); HEMOGLOBIN 13.9 gm/dL (13.0-16.0); MEAN CELL VOLUME 93.9 FL (83-96); MEAN CORPUSCULAR HEMOGLOBIN 29.8 PG (28-34); MEAN CORPUSCULAR HGB CONC 31.7 g/dL (30-36); MEAN PLATELET VOLUME 8.1 FL (6.5-11.5); RED BLOOD COUNT 4.68 X10e (3.90-5.60); WHITE BLOOD COUNT 16.5 X10e3 (4.0-10.5)
[2017-04-25 19:48] LABS: PHOSPHOROUS 4.4 mg/dL (2.5-4.6)
[2017-04-25 20:05] LABS: BUN/CREATININE RATIO 21.3; CALCIUM SERUM 8.1 mg/dL (8.4-10.2); CREATININE SERUM 2.3 mg/dL (0.6-1.4); POTASSIUM 5.2 mmol/L (3.5-5.1)
[2017-04-26 05:54] LABS: HEMATOCRIT 40.7 % (38.0-50.0); MEAN CELL VOLUME 93.7 FL (83-96); MEAN CORPUSCULAR HEMOGLOBIN 29.9 PG (28-34); MEAN CORPUSCULAR HGB CONC 31.9 g/dL (30-36); MEAN PLATELET VOLUME 8.2 FL (6.5-11.5); RED BLOOD COUNT 4.34 X10e (3.90-5.60); RED CELL DISTRIBUTION WIDTH 13.1 % (11.0-15.5); WHITE BLOOD COUNT 18.7 X10e3 (4.0-10.5)
[2017-04-26 07:13] LABS: ALBUMIN SERUM 2.1 g/dL (3.5-5.0); BILIRUBIN,TOTAL 0.2 mg/dL (0.2-2.0); BUN/CREATININE RATIO 18.8; CREATININE SERUM 2.5 mg/dL (0.6-1.4); GLOM FILT RATE Estimated 33.5 mL/min (>60); MAGNESIUM 1.8 mg/dL (1.6-3.0); POTASSIUM 4.6 mmol/L (3.5-5.1); PROTEIN TOTAL SERUM 5.1 g/dL (6.0-8.3)
[2017-04-26 20:50] LABS: FOLATE (FOLIC ACID) 9.2 ng/mL (>5.8)
[2017-04-27 06:06] LABS: HEMATOCRIT 39.9 % (38.0-50.0); HEMOGLOBIN 12.9 gm/dL (13.0-16.0); MEAN CELL VOLUME 93.5 FL (83-96); MEAN CORPUSCULAR HEMOGLOBIN 30.2 PG (28-34); MEAN CORPUSCULAR HGB CONC 32.4 g/dL (30-36); MEAN PLATELET VOLUME 8.1 FL (6.5-11.5); RED BLOOD COUNT 4.26 X10e (3.90-5.60); RED CELL DISTRIBUTION WIDTH 13.2 % (11.0-15.5); WHITE BLOOD COUNT 17.3 X10e3 (4.0-10.5)
[2017-04-27 06:42] LABS: ALBUMIN SERUM 2.3 g/dL (3.5-5.0); BILIRUBIN,TOTAL 0.8 mg/dL (0.2-2.0); BUN/CREATININE RATIO 18.46; CALCIUM SERUM 7.8 mg/dL (8.4-10.2); CREATININE SERUM 2.6 mg/dL (0.6-1.4); GLOM FILT RATE Estimated 31.9 mL/min (>60); POTASSIUM 4.2 mmol/L (3.5-5.1); PROTEIN TOTAL SERUM 5.3 g/dL (6.0-8.3)
[2017-04-27 12:29] LABS: HEP C AB (HEPPAN) Reactive (Nonreactive)
[2017-04-27 20:25] LABS: CREATININE,RANDOM URINE 143 mg/dL; TOTAL PROTEIN,RANDOM URINE 52 mg/dl (<10)
[2017-04-28 13:15] LABS: HEMATOCRIT 36.2 % (38.0-50.0); HEMOGLOBIN 12.1 gm/dL (13.0-16.0); MEAN CELL VOLUME 92.4 FL (83-96); MEAN CORPUSCULAR HGB CONC 33.5 g/dL (30-36); MEAN PLATELET VOLUME 8.2 FL (6.5-11.5); RED BLOOD COUNT 3.92 X10e (3.90-5.60); RED CELL DISTRIBUTION WIDTH 13.2 % (11.0-15.5)
[2017-04-28 14:32] LABS: BUN/CREATININE RATIO 16.8; CALCIUM SERUM 7.8 mg/dL (8.4-10.2); CREATININE SERUM 2.5 mg/dL (0.6-1.4); GLOM FILT RATE Estimated 33.5 mL/min (>60); POTASSIUM 4.1 mmol/L (3.5-5.1)
[2017-04-29 06:48] LABS: BUN/CREATININE RATIO 16.66; CALCIUM SERUM 7.8 mg/dL (8.4-10.2); CREATININE SERUM 2.4 mg/dL (0.6-1.4); GLOM FILT RATE Estimated 35.1 mL/min (>60); POTASSIUM 3.8 mmol/L (3.5-5.1)
[2017-04-29 06:52] LABS: HEMATOCRIT 35.2 % (38.0-50.0); HEMOGLOBIN 11.5 gm/dL (13.0-16.0); MEAN CELL VOLUME 92.7 FL (83-96); MEAN CORPUSCULAR HEMOGLOBIN 30.2 PG (28-34); MEAN CORPUSCULAR HGB CONC 32.6 g/dL (30-36); MEAN PLATELET VOLUME 8.5 FL (6.5-11.5); RED BLOOD COUNT 3.8 X10e (3.90-5.60); RED CELL DISTRIBUTION WIDTH 13.1 % (11.0-15.5); WHITE BLOOD COUNT 15.6 X10e3 (4.0-10.5)
[2017-04-30 05:35] LABS: HEMATOCRIT 34.4 % (38.0-50.0); HEMOGLOBIN 11.3 gm/dL (13.0-16.0); MEAN CELL VOLUME 92.2 FL (83-96); MEAN CORPUSCULAR HEMOGLOBIN 30.3 PG (28-34); MEAN CORPUSCULAR HGB CONC 32.8 g/dL (30-36); MEAN PLATELET VOLUME 7.7 FL (6.5-11.5); RED BLOOD COUNT 3.73 X10e (3.90-5.60); RED CELL DISTRIBUTION WIDTH 12.9 % (11.0-15.5); WHITE BLOOD COUNT 14.8 X10e3 (4.0-10.5)
[2017-04-30 06:39] LABS: BUN/CREATININE RATIO 15.65; CALCIUM SERUM 8.1 mg/dL (8.4-10.2); CREATININE SERUM 2.3 mg/dL (0.6-1.4); POTASSIUM 3.8 mmol/L (3.5-5.1)
[2017-05-01 05:46] LABS: HEMATOCRIT 33.1 % (38.0-50.0); HEMOGLOBIN 10.9 gm/dL (13.0-16.0); MEAN CELL VOLUME 93.3 FL (83-96); MEAN CORPUSCULAR HEMOGLOBIN 30.6 PG (28-34); MEAN CORPUSCULAR HGB CONC 32.8 g/dL (30-36); MEAN PLATELET VOLUME 8.6 FL (6.5-11.5); RED BLOOD COUNT 3.55 X10e (3.90-5.60); RED CELL DISTRIBUTION WIDTH 13.1 % (11.0-15.5); WHITE BLOOD COUNT 12.2 X10e3 (4.0-10.5)
[2017-05-01 06:11] LABS: BUN/CREATININE RATIO 15.23; CALCIUM SERUM 7.8 mg/dL (8.4-10.2); CREATININE SERUM 2.1 mg/dL (0.6-1.4); GLOM FILT RATE Estimated 41.3 mL/min (>60); POTASSIUM 3.6 mmol/L (3.5-5.1)
[2017-05-02 05:35] LABS: HEMATOCRIT 30.6 % (38.0-50.0); HEMOGLOBIN 10.4 gm/dL (13.0-16.0); MEAN CELL VOLUME 92.4 FL (83-96); MEAN CORPUSCULAR HEMOGLOBIN 31.4 PG (28-34); MEAN CORPUSCULAR HGB CONC 33.9 g/dL (30-36); MEAN PLATELET VOLUME 7.9 FL (6.5-11.5); RED BLOOD COUNT 3.31 X10e (3.90-5.60); RED CELL DISTRIBUTION WIDTH 12.7 % (11.0-15.5)
[2017-05-02 07:21] LABS: BUN/CREATININE RATIO 14.7; CALCIUM SERUM 8.3 mg/dL (8.4-10.2); CREATININE SERUM 1.7 mg/dL (0.6-1.4); GLOM FILT RATE Estimated 53.3 mL/min (>60); MAGNESIUM 1.7 mg/dL (1.6-3.0); PHOSPHOROUS 4.1 mg/dL (2.5-4.6); POTASSIUM 3.9 mmol/L (3.5-5.1)
== END 2017-05-02 09:18 | DRG 871 ==
LOC: CED 23:32 → C5C 04-19 03:15 → CEDOF 04-19 03:15 → CICCU2 04-19 03:15 → CEDOF 04-19 03:27 → CICCU2 04-19 03:27 → CED 04-19 03:27 → CEDOF 04-19 04:14 → CICCU2 04-19 04:14 → C5C 04-21 13:06
PROVIDERS: Emergency Medicine; Family Medicine; Internal Medicine; Internal Medicine Endocrinology, Diabetes & Metabolism; Internal Medicine Nephrology; Internal Medicine Pulmonary Disease; Psychiatry & Neurology Neurology
PROC: B246ZZZ Ultrasonography of Right and Left Heart (ICD-10-PCS; principal; 2017-04-19)
PROC: 009U3ZX Drainage of Spinal Canal, Percutaneous Approach, Diagnostic (ICD-10-PCS; 2017-04-21)
PROC: B01BYZZ Fluoroscopy of Spinal Cord using Other Contrast (ICD-10-PCS; 2017-04-21)
PROC: 02HV33Z Insertion of Infusion Device into Superior Vena Cava, Percutaneous Approach (ICD-10-PCS; 2017-04-25)
PROC: B518YZA Fluoroscopy of Superior Vena Cava using Other Contrast, Guidance (ICD-10-PCS; 2017-04-25)
PROC: B548ZZA Ultrasonography of Superior Vena Cava, Guidance (ICD-10-PCS; 2017-04-25)
PROC: B246ZZ4 Ultrasonography of Right and Left Heart, Transesophageal (ICD-10-PCS; 2017-04-26)
DX: A41.9 Sepsis, unspecified organism (principal); J96.00 Acute respiratory failure, unspecified whether with hypoxia or hypercapnia; K72.00 Acute and subacute hepatic failure without coma; N17.0 Acute kidney failure with tubular necrosis; J69.0 Pneumonitis due to inhalation of food and vomit; I76 Septic arterial embolism; G92 Toxic encephalopathy; M62.82 Rhabdomyolysis; F11.20 Opioid dependence, uncomplicated; E43 Unspecified severe protein-calorie malnutrition; F15.20 Other stimulant dependence, uncomplicated; E87.1 Hypo-osmolality and hyponatremia; R65.20 Severe sepsis without septic shock; B19.20 Unspecified viral hepatitis C without hepatic coma; E87.5 Hyperkalemia; F17.210 Nicotine dependence, cigarettes, uncomplicated; I80.9 Phlebitis and thrombophlebitis of unspecified site; E83.39 Other disorders of phosphorus metabolism; R19.7 Diarrhea, unspecified; F12.20 Cannabis dependence, uncomplicated; I12.9 Hypertensive chronic kidney disease with stage 1 through stage 4 chronic kidney disease, or unspecified chronic kidney disease; N18.3 Chronic kidney disease, stage 3 (moderate); E87.6 Hypokalemia; E83.51 Hypocalcemia
CPT/HCPCS: 36415; 36600; 51702; 70450; 70551; 71010; 71250; 72040; 72072; 72100; 72220; 76770; 76937; 77001; 77003; 80048; 80053; 80074; 80076; 80202; 80307; 81003; 82140; 82306; 82550; 82553; 82565; 82570; 82595; 82607; 82746; 82803; 82945; 83605; 83735; 83874; 83880; 84100; 84156; 84157; 84484; 85025; 85027; 85610; 85730; 86803; 87040; 87070; 87102; 87116; 87205; 87206; 87340; 87493; 87522; 87529; 87806; 89051; 92526; 92610; 93005; 93306; 93312; 93971; 94760; 96361; 96365; 96375; 97110; 97116; 97163; 97167; 97530; 97535; 99285; C1751; G0480; J0133; J0360; J0610; J0696; J1200; J1650; J2250; J2543; J3010; J3260; J3370; J3480